=== PATIENT | female | born 1995 | race Caucasian/White ===

== ENCOUNTER 2018-11-15 11:23 | Emergency (ER) | payer OTHER ==
--- NOTE | 2018-11-15 12:26 | ER Document Report ---
ED Medical Screen (RME) - General Chief Complaint: Abdominal Pain Stated Complaint: ABDOMINAL PAIN/VOMITING/NAUSEA Time Seen by Provider: 11/15/18 12:18 Mode of Arrival: Ambulatory Information source: Patient Notes: 2-week history of left lower quadrant pain, nausea, vomiting. Patient describes the pain as a cramping sensation. No radiation. No alleviating or exacerbating factors. Patient denies any dysuria but does complain of some increased urgency. She denies any increased frequency. She denies any vaginal discharge, diarrhea, constipation. I have greeted and performed a rapid initial assessment of this patient. A comprehensive ED assessment and evaluation of the patient, analysis of test results and completion of the medical decision making process will be conducted by additional ED providers. PHYSICAL EXAMINATION: GENERAL: Well-appearing, well-nourished and in no acute distress. HEAD: Atraumatic, normocephalic. EYES: Pupils equal round extraocular movements intact, conjunctiva are normal. ENT: Nares patent NECK: Normal range of motion LUNGS: No respiratory distress Musculoskeletal: Normal range of motion NEUROLOGICAL: Normal speech, normal gait. PSYCH: Normal mood, normal affect. SKIN: Warm, Dry, normal turgor, no rashes or lesions noted. TRAVEL OUTSIDE OF THE [place] IN LAST 30 DAYS: No - Related Data Allergies/Adverse Reactions: No Known Allergies Allergy (Verified 11/15/18 12:16) Past Medical History - Social History Chew tobacco use (# tins/day): No Frequency of alcohol use: Occasional Renal/ Medical History: Denies: Hx Peritoneal Dialysis Psychiatric Medical History: Comment Only: Hx Depression - anxiety Past Surgical History: Reports: Hx Orthopedic Surgery - right arm, Hx Tonsillectomy Physical Exam - Vital signs Vitals: Temp Pulse Resp BP Pulse Ox 98.0 F 76 20 128/85 H 100 11/15/18 11:39 11/15/18 11:39 11/15/18 11:39 11/15/18 11:39 11/15/18 11:39 Course - Vital Signs Vital signs: Temp Pulse Resp BP Pulse Ox 98.0 F 76 20 128/85 H 100 11/15/18 11:39 11/15/18 11:39 11/15/18 11:39 11/15/18 11:39 11/15/18 11:39
[2018-11-15 12:59] LABS: ABSOLUTE EOSINOPHILS # (AUTO) 0.1 10^3/uL (0.0-0.6); ABSOLUTE LYMPHOCYTES (AUTO) 2.2 10^3/uL (0.5-4.7); ABSOLUTE MONOCYTES (AUTO) 0.7 10^3/uL (0.1-1.4); ABSOLUTE NEUT (AUTO) 3.3 10^3/uL (1.7-8.2); BASOPHILS % (AUTO) 0.8 % (0-2); EOSINOPHILS % (AUTO) 1.6 % (0-6); HEMATOCRIT 35.5 % (36.0-47.0); LYMPHOCYTES % (AUTO) 34.7 % (13-45); MEAN CORPUSCULAR HEMOGLOBIN 27.8 pg (27.0-33.4); MEAN CORPUSCULAR HGB CONC 33.7 g/dL (32.0-36.0); MEAN CORPUSCULAR VOLUME 82 fl (80-97); MONOCYTES % (AUTO) 10.6 % (3-13); PLATELET COUNT 269 10^3/uL (150-450); RED CELL DISTRIBUTION WIDTH 15.2 % (11.5-14.0); SEGMENTED NEUTROPHILS % (AUTO) 52.3 % (42-78); TOTAL CELLS COUNTED % (AUTO) 100 %; WHITE BLOOD COUNT 6.3 10^3/uL (4.0-10.5)
[2018-11-15 13:03] LABS: APPEARANCE,URINE SLIGHTLY-CLOUDY; BILIRUBIN,URINE NEGATIVE (NEGATIVE); COLOR,URINE YELLOW; GLUCOSE, URINE NEGATIVE (NEGATIVE); KETONES,URINE NEGATIVE (NEGATIVE); LEUKOCYTE ESTERASE,URINE NEGATIVE (NEGATIVE); NITRITE,URINE NEGATIVE (NEGATIVE); PROTEIN,URINE NEGATIVE (NEGATIVE); URINE SPECIFIC GRAVITY 1.023; UROBILINOGEN,URINE NEGATIVE mg/dL (<2.0)
[2018-11-15 13:24] LABS: ALANINE AMINOTRANSFERASE 14 U/L (9-52); ALBUMIN 4.6 g/dL (3.5-5.0); ALKALINE PHOSPHATASE 77 U/L (38-126); ANION GAP 12 (5-19); ASPARTATE AMINO TRANSFERASE 19 U/L (14-36); BILIRUBIN,DIRECT 0.2 mg/dL (0.0-0.4); BILIRUBIN,TOTAL 0.6 mg/dL (0.2-1.3); BLOOD UREA NITROGEN 10 mg/dL (7-20); CALCIUM 9.8 mg/dL (8.4-10.2); CARBON DIOXIDE 25 mmol/L (22-30); CHLORIDE 103 mmol/L (98-107); GLUCOSE 83 mg/dL (75-110); POTASSIUM 3.9 mmol/L (3.6-5.0); SODIUM 139.7 mmol/L (137-145); TOTAL PROTEIN 7.6 g/dL (6.3-8.2)
--- NOTE | 2018-11-15 18:00 | RADIOLOGY REPORT (SQ) ---
EXAM DESCRIPTION: CT ABD/PELVIS WITH IV ORAL COMPLETED DATE/TIME: 11/15/2018 5:49 pm REASON FOR STUDY: LLQ pain COMPARISON: None. TECHNIQUE: CT scan of the abdomen and pelvis performed using helical scanning technique with dynamic intravenous contrast injection and oral contrast. Images reviewed with lung, soft tissue, and bone w indows. Reconstructed coronal and sagittal MPR images reviewed. Delayed images for evaluation of the urinary system also acquired. All images stored on PACS. All CT scanners at this facility use dose modulation, iterative reconstruction, and/or weight based d osing when appropriate to reduce radiation dose to as low as reasonably achievable (ALARA). [facility]: Dose Right [facility]: CareDose [facility]: Dose Right [facility]: Teradose 4D [facility]: [employer] CONTRAST TYPE AND DOSE: contrast/concentration: Isovue 350.00 mg/ml; Total Contrast Delivered: 67.0 ml; Total Saline Delivered: 65.0 ml RENAL FUNCTION: GFR > 60. RADIATION DOSE: CT Rad equipment meets quality standard of care and radiation dose reduction techniq ues were employed. CTDIvol: 5.0 - 5.8 mGy. DLP: 528 mGy-cm.. LIMITATIONS: None. FINDINGS: LOWER CHEST: No significant findings. LIVER: Normal size. No enhancing masses. No dilated ducts. SPLEEN: Normal size. No focal lesions. PANCREAS: No masses identified. No significant calcifications. No adjacent inflammation or peripancre atic fluid collections. Pancreatic duct not dilated. GALLBLADDER: No calcified stones. No inflammatory changes to suggest cholecystitis. ADRENAL GLANDS: No significant masses. RIGHT KIDNEY AND URETER: No cysts identified. No solid masses identified. No calcified stones. No hyd ronephrosis or hydroureter. LEFT KIDNEY AND URETER: No cysts identified. No solid masses identified. No calcified stones. No hydr onephrosis or hydroureter. AORTA AND VESSELS: No aneurysm. No dissection. Renal arteries, SMA, celiac without significant stenos is. RETROPERITONEUM: No bulky retroperitoneal adenopathy. BOWEL AND PERITONEAL CAVITY: No obstruction or inflammatory changes. No free fluid. APPENDIX: Normal. PELVIS: No mass. No free fluid. Unremarkable bladder. ABDOMINAL WALL: No masses. No hernias. BONES: No acute findings. OTHER: No other significant finding. IMPRESSION: NO ACUTE FINDINGS IN THE ABDOMEN OR PELVIS ON CT SCAN WITH IV CONTRAST. TECHNICAL DOCUMENTATION: JOB ID: [id number] Quality ID # [id number]: Final reports with documentation of one or more dose reduction techniques (e.g., Au tomated exposure control, adjustment of the mA and/or kV according to patient size, use of iterative reconstruction technique) 2010 [employer]- All Rights Reserved Reading location - IP/workstation name: [email or web address]
--- NOTE | 2018-11-15 18:32 | ER Document Report ---
ED General - General Chief Complaint: Abdominal Pain Stated Complaint: ABDOMINAL PAIN/VOMITING/NAUSEA Time Seen by Provider: 11/15/18 12:18 Mode of Arrival: Ambulatory Notes: RME provider note: 2-week history of left lower quadrant pain, nausea, vomiting. Patient describes the pain as a cramping sensation. No radiation. No alleviating or exacerbating factors. Patient denies any dysuria but does complain of some increased urgency. She denies any increased frequency. She denies any vaginal discharge, diarrhea, constipation. MY HPI: Same as above, patient states in the last 2 weeks of her intermittent pain she has vomited probably 5 times denying any blood. Patient has not vomited in the last 72 hours. Past medical history: Factor V deficiency Medications: None Allergies: None Last menstrual period 10/21/2018 TRAVEL OUTSIDE OF THE [place] IN LAST 30 DAYS: No - Related Data Allergies/Adverse Reactions: No Known Allergies Allergy (Verified 11/15/18 12:16) Past Medical History - General Information source: Patient - Social History Smoking Status: Current Every Day Smoker Chew tobacco use (# tins/day): No Frequency of alcohol use: Occasional Family History: Reviewed & Not Pertinent Patient has suicidal ideation: No Patient has homicidal ideation: No Renal/ Medical History: Denies: Hx Peritoneal Dialysis Psychiatric Medical History: Comment Only: Hx Depression - anxiety Past Surgical History: Reports: Hx Orthopedic Surgery - right arm, Hx Tonsillectomy Review of Systems - Review of Systems Constitutional: denies: Chills, Fever EENT: No symptoms reported Cardiovascular: No symptoms reported Respiratory: No symptoms reported Gastrointestinal: See HPI Genitourinary: See HPI Female Genitourinary: See HPI Musculoskeletal: No symptoms reported Skin: No symptoms reported Hematologic/Lymphatic: No symptoms reported Neurological/Psychological: No symptoms reported Physical Exam - Vital signs Vitals: Temp Pulse Resp BP Pulse Ox 98.0 F 76 20 128/85 H 100 11/15/18 11:39 11/15/18 11:39 11/15/18 11:39 11/15/18 11:39 11/15/18 11:39 - Notes Notes: GENERAL: Alert, interacts well. No acute distress. HEAD: Normocephalic, atraumatic. EYES: Pupils equal, round, and reactive to light. Extraocular movements intact. ENT: Oral mucosa moist, tongue midline. NECK: Full range of motion. Supple. Trachea midline. LUNGS: Clear to auscultation bilaterally, no wheezes, rales, or rhonchi. No respiratory distress. HEART: Regular rate and rhythm. No murmur ABDOMEN: Soft, Non-distended. Bowel sounds present in all 4 quadrants. No McBurney's point tenderness noted, no Brown sign. Patient has generalized left lower quadrant abdominal pain. Pain does not radiate into her left pelvic region. Denies periumbilical abdominal pain or suprapubic abdominal pain EXTREMITIES: Moves all 4 extremities spontaneously. No edema, normal radial and dorsalis pedis pulses bilaterally. No cyanosis. BACK: no cervical, thoracic, lumbar midline tenderness. No saddle anesthesia, normal distal neurovascular exam. No CVA tenderness noted NEUROLOGICAL: Alert and oriented x3. Normal speech. cranial nerves II through XII grossly intact PSYCH: Normal affect, normal mood. SKIN: Warm, dry, normal turgor. No rashes or lesions noted. Course - Re-evaluation Re-evalutation: 11/15/18 18:33 Initially discussed with patient and mother at bedside at length patient's lab results. No signs of leukocytosis, no signs of anemia, CMP within normal limits, no signs of urinary tract infection, hCG negative. Discussed due to the location of her left lower abdominal quadrant pain potentially diverticulitis is unable to be ruled out. Discussed use of at home antibiotics and follow-up with primary care provider. Also discussed use of CT imaging at this time. Discussed pros and cons of CT imaging and radiation exposure. Mother and patient wished to continue with CT imaging to "figure out exactly what is going on." Again discussed the risks versus benefits of CT imaging and radiation exposure. Mother and patient continue to wish for testing. CT with oral and IV contrast showed no signs of abnormalities. Patient continues without vomiting in the emergency room and states she overall feels a lot better. Discussed close follow-up with primary care provider, vitals stable, stable for discharge. - Vital Signs Vital signs: Temp Pulse Resp BP Pulse Ox 97.5 F 64 16 137/79 H 100 11/15/18 15:12 11/15/18 15:12 11/15/18 15:12 11/15/18 15:12 11/15/18 15:12 - Laboratory Result Diagrams: 11/15/18 12:40 11/15/18 12:40 Laboratory results interpreted by me: 11/15/18 12:40 Hct 35.5 L RDW 15.2 H Discharge - Discharge Clinical Impression: Abdominal pain Qualifiers: Abdominal location: left lower quadrant Qualified Code(s): R10.32 - Left lower quadrant pain Condition: Stable Disposition: HOME, SELF-CARE Instructions: Abdominal Pain ([facility]) Additional Instructions: As we discussed you have been seen and treated in the emergency department for your generalized lower left abdominal pain. At this time your imaging reveals no signs of abnormalities and your labs are within normal limits. Please make sure you follow-up with your primary care provider in the next 24-48 hours. Please return to the emergency room for any other concerning symptoms. Forms: Return to Work Referrals: ANDI HA DO [NO LOCAL MD] - Follow up as needed
[2018-11-15 19:13] VITALS: BP 129/93
== END 2018-11-15 19:14 | disposition home or self-care (01) ==
LOC: ER 11:23
DX: R10.32 Left lower quadrant pain (principal); R11.2 Nausea with vomiting, unspecified; F17.200 Nicotine dependence, unspecified, uncomplicated
CPT/HCPCS: 36415; 74177; 80053; 81001; 81025; 85025; 99284

== ENCOUNTER 2019-04-19 18:02 | Observation (INO) | payer OTHER ==
--- NOTE | 2019-04-19 18:29 | ER Document Report ---
ED Medical Screen (RME) - General Chief Complaint: Vag Bleeding, +preg <12wks Stated Complaint: ISSUE Time Seen by Provider: 04/19/19 18:22 Notes: Patient is a 23-year-old female G1, P0 presents to the emergency department for vaginal bleeding. Patient states she is approximately 18 weeks . States yesterday she started with some generalized abdominal cramping. States prior to arrival to the emergency room she started with vaginal bleeding. States it is dark red in color and intermittently with clots. Patient states she now feels lightheaded and weak. Past medical history: Factor V Leiden Medications: Aspirin Allergies: None GENERAL: Alert, interacts well. No acute distress. ABDOMEN: Soft, generalized bilateral pelvic pain noted non-distended. I have greeted and performed a rapid initial assessment of this patient. A comprehensive ED assessment and evaluation of the patient, analysis of test results and completion of the medical decision making process will be conducted by additional ED providers. I have specifically instructed the patient or family members with the patient to immediately return to any nursing staff should anything change in the patient's condition or with their chief complaint. This medical record was dictated with voice recognizing software. There may be grammatical, syntax errors that are unintended. TRAVEL OUTSIDE OF THE [place] IN LAST 30 DAYS: No - Related Data Allergies/Adverse Reactions: No Known Allergies Allergy (Verified 11/15/18 12:16) Past Medical History Renal/ Medical History: Denies: Hx Peritoneal Dialysis Psychiatric Medical History: Comment Only: Hx Depression - anxiety Past Surgical History: Reports: Hx Orthopedic Surgery - right arm, Hx Tonsillectomy Physical Exam - Vital signs Vitals: Temp Pulse Resp BP Pulse Ox 98.3 F 89 16 127/77 H 100 04/19/19 18:06 04/19/19 18:06 04/19/19 18:06 04/19/19 18:06 04/19/19 18:06 Course - Vital Signs Vital signs: Temp Pulse Resp BP Pulse Ox 98.3 F 89 16 127/77 H 100 04/19/19 18:06 04/19/19 18:06 04/19/19 18:06 04/19/19 18:06 04/19/19 18:06
[2019-04-19 18:51] LABS: ABSOLUTE EOSINOPHILS # (AUTO) 0.1 10^3/uL (0.0-0.6); ABSOLUTE LYMPHOCYTES (AUTO) 1.7 10^3/uL (0.5-4.7); ABSOLUTE MONOCYTES (AUTO) 0.8 10^3/uL (0.1-1.4); ABSOLUTE NEUT (AUTO) 7.9 10^3/uL (1.7-8.2); BASOPHILS % (AUTO) 0.2 % (0-2); EOSINOPHILS % (AUTO) 0.6 % (0-6); HEMATOCRIT 34.1 % (36.0-47.0); HEMOGLOBIN 11.5 g/dL (12.0-15.5); LYMPHOCYTES % (AUTO) 16.2 % (13-45); MEAN CORPUSCULAR HEMOGLOBIN 28.9 pg (27.0-33.4); MEAN CORPUSCULAR HGB CONC 33.7 g/dL (32.0-36.0); MEAN CORPUSCULAR VOLUME 86 fl (80-97); MONOCYTES % (AUTO) 7.2 % (3-13); PLATELET COUNT 212 10^3/uL (150-450); RED BLOOD COUNT 3.97 10^6/uL (3.72-5.28); RED CELL DISTRIBUTION WIDTH 16.3 % (11.5-14.0); SEGMENTED NEUTROPHILS % (AUTO) 75.8 % (42-78); TOTAL CELLS COUNTED % (AUTO) 100 %; WHITE BLOOD COUNT 10.5 10^3/uL (4.0-10.5)
--- NOTE | 2019-04-19 18:53 | ER Document Report ---
ED GI/ - General Chief Complaint: Vag Bleeding, +preg <12wks Stated Complaint: ISSUE Time Seen by Provider: 04/19/19 18:22 Mode of Arrival: Ambulatory Information source: Patient Notes: 23-year-old female presented to ED for complaint of vaginal bleeding at 18 weeks . She states she is 1 para 0. She states she started yesterday with some generalized cramping and then today she had some vaginal bleeding dark red intermittent clots. She states she feeling a little lightheaded now. Blood work and ultrasound are in progress. TRAVEL OUTSIDE OF THE [place] IN LAST 30 DAYS: No - HPI Patient complains to provider of: Abdominal pain Onset: Yesterday Timing/Duration: Gradual, Intermittent Quality of pain: Cramping Severity at maximum: Severe Severity in ED: Severe Pain Level: 5 Vaginal bleeding (Compared to normal period): Dark brown, Passing clots Menstrual period history: Associated symptoms: Other - Pelvic pain lightheadedness normal vaginal bleeding Exacerbated by: Denies Relieved by: Denies Similar symptoms previously: No Recently seen / treated by doctor: Yes - Related Data Allergies/Adverse Reactions: No Known Allergies Allergy (Verified 11/15/18 12:16) Past Medical History - General Information source: Patient - Social History Smoking Status: Never Smoker Frequency of alcohol use: None Drug Abuse: None Lives with: Family Family History: Reviewed & Not Pertinent Patient has suicidal ideation: No Patient has homicidal ideation: No - Past Medical History Cardiac Medical History: Reports: Hx Hypertension, Other - factor V leiden Pulmonary Medical History: Reports: None EENT Medical History: Reports: None Neurological Medical History: Reports: None Endocrine Medical History: Reports: None Renal/ Medical History: Reports: None Malignancy Medical History: Reports: None GI Medical History: Reports: None Musculoskeletal Medical History: Reports None Skin Medical History: Reports None Psychiatric Medical History: Reports: Hx Anxiety, Hx Depression - anxiety Traumatic Medical History: Reports: None Infectious Medical History: Reports: None Past Surgical History: Reports: Hx Orthopedic Surgery - right arm, Hx Tonsillectomy Review of Systems - Review of Systems Constitutional: No symptoms reported EENT: No symptoms reported Cardiovascular: Lightheaded Respiratory: No symptoms reported Gastrointestinal: No symptoms reported Genitourinary: No symptoms reported Female Genitourinary: No symptoms reported, , Vaginal bleeding - Vaginal pain, Other Musculoskeletal: No symptoms reported Skin: No symptoms reported Hematologic/Lymphatic: No symptoms reported Neurological/Psychological: No symptoms reported -: Yes All other systems reviewed and negative Physical Exam - Vital signs Vitals: Temp Pulse Resp BP Pulse Ox 98.3 F 89 16 127/77 H 100 04/19/19 18:06 04/19/19 18:06 04/19/19 18:06 04/19/19 18:06 04/19/19 18:06 Interpretation: Normal - General General appearance: Appears well, Alert - HEENT Head: Normocephalic, Atraumatic Eyes: Normal Pupils: PERRL - Respiratory Respiratory status: No respiratory distress Chest status: Nontender Breath sounds: Normal Chest palpation: Normal - Cardiovascular Rhythm: Regular Heart sounds: Normal auscultation Murmur: No - Abdominal Inspection: Normal Distension: No distension Bowel sounds: Normal Tenderness: Nontender Organomegaly: No organomegaly - Genitourinary Vaginal bleeding: Mild Notes: No speculum exam done patient is an active labor water has broken. Digital exam able to feel baby's head - Back Back: Normal, Nontender - Extremities General upper extremity: Normal inspection, Nontender, Normal color, Normal ROM, Normal temperature General lower extremity: Normal inspection, Nontender, Normal color, Normal ROM, Normal temperature, Normal weight bearing. No: Briseida's sign - Neurological Neuro grossly intact: Yes Cognition: Normal Orientation: AAOx4 Gris Coma Scale Eye Opening: Spontaneous Gris Coma Scale Verbal: Oriented Gris Coma Scale Motor: Obeys Commands Gris Coma Scale Total: 15 Speech: Normal Motor strength normal: LUE, RUE, LLE, RLE Sensory: Normal - Psychological Associated symptoms: Normal affect, Normal mood - Skin Skin Temperature: Warm Skin Moisture: Dry Skin Color: Normal Course - Re-evaluation Re-evalutation: 04/19/19 20:[address] Cline. First time he told me to call him back if he was needed as my conversation was interrupted with nurse saying patient had expelled something. I examined the patient she had broken her membranes but she had not passed a baby there was minimal bleeding at that time. I consulted him that him know that the child had not been born. The second time I consult to him, I told him that she had ruptured her membranes but had not passed the fetus; he stated that she should be sent up to the labor and delivery right away. She has not delivered the baby when she left the ER. Digital exam I was able to feel something in the vaginal vault but it was not a complete baby. 04/20/19 02:27 - Vital Signs Vital signs: Temp Pulse Resp BP Pulse Ox 98.1 F 70 20 114/67 100 04/19/19 23:13 04/19/19 23:13 04/19/19 23:13 04/19/19 23:13 04/19/19 23:13 - Laboratory Result Diagrams: 04/19/19 18:35 04/19/19 18:35 Laboratory results interpreted by me: 04/19/19 04/19/19 04/19/19 18:35 18:35 18:35 Hgb 11.5 L Hct 34.1 L RDW 16.3 H Sodium 136.7 L Beta HCG, Quant 22353.00 H Urine Blood MODERATE H Ur Leukocyte Esterase MODERATE H Urine Ascorbic Acid 20 H - Diagnostic Test Radiology reviewed: Image reviewed, Reports reviewed - Consults cline Time consulted: 19:50 Reason for consultation: 04/20/19 02:31 Eminent delivery of 18 to 20-week gestation Consulted provider: other Discharge - Discharge Clinical Impression: misscarraige in proress 18 weeks Disposition: ADMITTED OBSERVATION Admitting Provider: [facility] - web Unit Admitted: Labor and Delivery
[2019-04-19 19:02] LABS: APPEARANCE,URINE SLIGHTLY-CLOUDY; BILIRUBIN,URINE NEGATIVE (NEGATIVE); COLOR,URINE YELLOW; GLUCOSE, URINE NEGATIVE (NEGATIVE); KETONES,URINE NEGATIVE (NEGATIVE); LEUKOCYTE ESTERASE,URINE MODERATE (NEGATIVE); NITRITE,URINE NEGATIVE (NEGATIVE); PROTEIN,URINE NEGATIVE (NEGATIVE); URINE SPECIFIC GRAVITY 1.024; UROBILINOGEN,URINE NEGATIVE mg/dL (<2.0)
[2019-04-19 19:07] LABS: ALANINE AMINOTRANSFERASE 26 U/L (9-52); ALKALINE PHOSPHATASE 63 U/L (38-126); ANION GAP 9 (5-19); ASPARTATE AMINO TRANSFERASE 26 U/L (14-36); BILIRUBIN,DIRECT 0.2 mg/dL (0.0-0.4); BILIRUBIN,TOTAL 0.3 mg/dL (0.2-1.3); BLOOD UREA NITROGEN 7 mg/dL (7-20); CALCIUM 9.5 mg/dL (8.4-10.2); CARBON DIOXIDE 25 mmol/L (22-30); CHLORIDE 103 mmol/L (98-107); GLUCOSE 89 mg/dL (75-110); POTASSIUM 4.1 mmol/L (3.6-5.0); SODIUM 136.7 mmol/L (137-145); TOTAL PROTEIN 7.1 g/dL (6.3-8.2)
[2019-04-19] MEDS ORDERED: ACETAMINOPHEN 325 MG TABLET PO ONE (19:36)
[2019-04-19] MEDS ORDERED: NORMAL SALINE 1000 ML 1,000 ML IV ONE (19:47)
--- NOTE | 2019-04-19 20:33 | RADIOLOGY REPORT (SQ) ---
EXAM DESCRIPTION: U/S OB LIMITED COMPLETED DATE/TIME: 04/19/2019 7:11 pm REASON FOR STUDY: 18 weeks with vaginal bleeding . COMPARISON: None. TECHNIQUE: Limited transabdominal grayscale ultrasound for evaluation of specific requested obstetri edgardo parameters. LIMITATIONS: None. FINDINGS: EGA: 20 weeks 0 days MAD[place]: 09/06/2019. CERVICAL LENGTH: There is U shape funneling of the cervix. The closed segment of the cervix is jamie uring 2.3 cm. SAFIA: LVP 2.6 cm. FHR: 153 beats per minute. PRESENTATION: Breech. The legs of the fetus are protruding into the open segment of the cervix. PLACENTA: Low-lying placenta extending to the internal cervical os. ANATOMY: Not assessed IMPRESSION: LIMITED OBSTETRICAL ULTRASOUND WITH MEASURED PARAMETERS DELINEATED ABOVE. LOW LYING AIYANA CENTA EXTENDING TO THE INTERNAL CERVICAL OS. U SHAPED FUNNELING OF THE CERVIX. BREECH PRESENTATION OF THE FETUS WITH THE LEGS OF THE FETUS PROTRUDING INTO THE OPEN SEGMENT OF THE CERVIX. OB-DRY HOUSE TENDER CONSU LT RECOMMENDED. Trimester of : Second trimester - 13 weeks 1 day to 27 weeks 6 days. COMMUNICATION The critical information above was relayed directly by me by telephone to Dr. Luis pringle 04/19/2019 at 20:22 hrs with readback verification. TECHNICAL DOCUMENTATION: JOB ID: [id number] 2010 [employer]- All Rights Reserved Reading location - IP/workstation name: [email or web address]
[2019-04-19] MEDS ORDERED: ONDANSETRON 4 MG TAB.RAPDIS PO PRN (21:11)
[2019-04-19] MEDS ORDERED: ONDANSETRON HCL INJ/PF 4 MG/2 ML SDV IV PRN (21:12)
[2019-04-19] MEDS ORDERED: ACETAMINOPHEN WITH CODEINE #3 TABLET PO PRN (21:12)
[2019-04-19] MEDS ORDERED: RINGERS SOLUTION,LACTATED 1,000 ML IV PRN (21:12)
[2019-04-19] MEDS: ACETAMINOPHEN WITH CODEINE #3 TABLET PO PRN (21:38)
[2019-04-19] MEDS: IBUPROFEN 800 MG TABLET PO SCH (22:56)
--- NOTE | 2019-04-20 00:27 | PDOC H&P ---
History of Present Illness Admission Date/PCP: 04/19/19 21:03 Patient complains of: vaginal bleeding and cramping History of Present Illness: MONSERRAT BROWNLEE is a 23 year old female G1 at 18 weeks by history presented to er with cramping and vaginal bleeding. reported as SROM with parts in the lower cervical canal/ Past Medical History LMP: [place] 09/20/19 Cardiac Medical History: Reports: Hypertension, Other - factor V leiden Pulmonary Medical History: Reports: None EENT Medical History: Reports: None Neurological Medical History: Reports: None Endocrine Medical History: Reports: None Renal/ Medical History: Reports: None Malignancy Medical History: Reports: None GI Medical History: Reports: None Musculoskeltal Medical History: Reports: None Skin Medical History: Reports: None Psychiatric Medical History: Reports: Depression Traumatic Medical History: Reports: None Infectious Medical History: Reports: None Past Surgical History Past Surgical History: Reports: Orthopedic Surgery - right arm, Tonsillectomy Social History Lives with: Family Smoking Status: Never Smoker Frequency of Alcohol Use: None Hx Recreational Drug Use: No Drugs: None Hx Prescription Drug Abuse: No Family History Family History: Reviewed & Not Pertinent Parental Family History Reviewed: No Children Family History Reviewed: No Sibling(s) Family History Reviewed.: No Medication/Allergy Home Medications: No Home Medications 11/15/18 Allergies/Adverse Reactions: No Known Allergies Allergy (Verified 11/15/18 12:16) Physical Exam - Physical Exam Vital Signs: Temp Pulse Resp BP Pulse Ox 98.1 F 70 20 114/67 100 04/19/19 23:13 04/19/19 23:13 04/19/19 23:13 04/19/19 23:13 04/19/19 23:13 Intake & Output 04/18/19 04/19/19 04/20/19 06:59 06:59 06:59 Intake Total 200 Balance 200 Weight 61.9 kg General appearance: PRESENT: severe distress Head exam: PRESENT: atraumatic Neurological exam: PRESENT: alert - Obstetrical Exam Vagina: normal Result Laboratory Results: 04/19/19 18:35 04/19/19 18:35 04/19/19 04/19/19 04/19/19 18:35 18:35 18:35 WBC 10.5 RBC 3.97 Hgb 11.5 L Hct 34.1 L MCV 86 MCH 28.9 MCHC 33.7 RDW 16.3 H Plt Count 212 Seg Neutrophils % 75.8 Lymphocytes % 16.2 Monocytes % 7.2 Eosinophils % 0.6 Basophils % 0.2 Absolute Neutrophils 7.9 Absolute Lymphocytes 1.7 Absolute Monocytes 0.8 Absolute Eosinophils 0.1 Absolute Basophils 0.0 Sodium 136.7 L Potassium 4.1 Chloride 103 Carbon Dioxide 25 Anion Gap 9 BUN 7 Creatinine 0.68 Est GFR ( Amer) > 60 Est GFR (Non-Af Amer) > 60 Glucose 89 Calcium 9.5 Total Bilirubin 0.3 AST 26 ALT 26 Alkaline Phosphatase 63 Total Protein 7.1 Albumin 4.0 Urine Color Urine Appearance Urine pH Ur Specific [place] Urine Protein Urine Glucose (UA) Urine Ketones Urine Blood Urine Nitrite Ur Leukocyte Esterase Urine WBC (Auto) Urine RBC (Auto) Blood Type O POSITIVE 04/19/19 18:35 WBC RBC Hgb Hct MCV MCH MCHC RDW Plt Count Seg Neutrophils % Lymphocytes % Monocytes % Eosinophils % Basophils % Absolute Neutrophils Absolute Lymphocytes Absolute Monocytes Absolute Eosinophils Absolute Basophils Sodium Potassium Chloride Carbon Dioxide Anion Gap BUN Creatinine Est GFR ( Amer) Est GFR (Non-Af Amer) Glucose Calcium Total Bilirubin AST ALT Alkaline Phosphatase Total Protein Albumin Urine Color YELLOW Urine Appearance SLIGHTLY-CLOUDY Urine pH 7.0 Ur Specific [place] 1.024 Urine Protein NEGATIVE Urine Glucose (UA) NEGATIVE Urine Ketones NEGATIVE Urine Blood MODERATE H Urine Nitrite NEGATIVE Ur Leukocyte Esterase MODERATE H Urine WBC (Auto) 9 Urine RBC (Auto) 3 Blood Type Impressions: Obstetrics Ultrasound 04/19/19 18:24 IMPRESSION: LIMITED OBSTETRICAL ULTRASOUND WITH MEASURED PARAMETERS DELINEATED ABOVE. LOW LYING PLACENTA EXTENDING TO THE INTERNAL CERVICAL OS. U SHAPED FUNNELING OF THE CERVIX. BREECH PRESENTATION OF THE FETUS WITH THE LEGS OF THE FETUS PROTRUDING INTO THE OPEN SEGMENT OF THE CERVIX. OB-DOCUMENT DESIGN SPECIALIST CONSULT RECOMMENDED. Trimester of : Second trimester - 13 weeks 1 day to 27 weeks 6 days. Assessment & Plan - Diagnosis (1) PROM (premature rupture of membranes) Qualifiers: PROM onset of labor timing: unspecified duration between rupture of membranes and onset of labor PROM gestational age: -first trimester Qualified Code(s): O42.911 - premature rupture of membranes, unspecified as to length of time between rupture and onset of labor, first trimester Is this a current diagnosis for this admission?: Yes - Plan Summary Plan Summary: expectant management
[2019-04-20] MEDS: ACETAMINOPHEN WITH CODEINE #3 TABLET PO PRN ×2 (02:34→06:33)
[2019-04-20] MEDS ORDERED: MISOPROSTOL 0.2 MG TABLET ONE (02:53)
[2019-04-20] MEDS ORDERED: MISOPROSTOL 0.2 MG TABLET PR ONE (03:10)
[2019-04-20] MEDS: IBUPROFEN 800 MG TABLET PO SCH ×2 (06:32→15:17)
--- NOTE | 2019-04-20 11:44 | PDOC DISCHARGE SUMMARY ---
General - Admit/Disc Date/PCP Admission Date/Primary Care Provider: 04/19/19 21:03 Discharge Date: 04/20/19 - Discharge Diagnosis (1) Spontaneous Is this a current diagnosis for this admission?: Yes (2) PROM (premature rupture of membranes) Is this a current diagnosis for this admission?: Yes - Additional Information Home Medications: No Home Medications 11/15/18 History of Present Illness History of Present Illness: MONSERRAT BROWNLEE is a 23 year old female Hospital Course Hospital Course: pt presented with pprom at approximately 18 wks. preceded to deliver the POC with fetus. has thus far had unremarkable post delivery course. is ready for discharge home Physical Exam - Physical Exam Vital Signs: Temp Pulse Resp BP Pulse Ox 97.8 F 75 16 114/61 99 04/20/19 08:31 04/20/19 08:31 04/20/19 08:31 04/20/19 08:31 04/20/19 08:31 Intake & Output 04/19/19 04/20/19 04/21/19 06:59 06:59 06:59 Intake Total 200 Balance 200 Weight 63.3 kg General appearance: PRESENT: no acute distress, cooperative - abdomen soft, nontender and nondistended. uterus well below umbilicus - Obstetrical Exam Vagina: normal Result Laboratory Results: 04/19/19 18:35 04/19/19 18:35 04/19/19 04/19/19 04/19/19 18:35 18:35 18:35 WBC 10.5 RBC 3.97 Hgb 11.5 L Hct 34.1 L MCV 86 MCH 28.9 MCHC 33.7 RDW 16.3 H Plt Count 212 Seg Neutrophils % 75.8 Lymphocytes % 16.2 Monocytes % 7.2 Eosinophils % 0.6 Basophils % 0.2 Absolute Neutrophils 7.9 Absolute Lymphocytes 1.7 Absolute Monocytes 0.8 Absolute Eosinophils 0.1 Absolute Basophils 0.0 Sodium 136.7 L Potassium 4.1 Chloride 103 Carbon Dioxide 25 Anion Gap 9 BUN 7 Creatinine 0.68 Est GFR ( Amer) > 60 Est GFR (Non-Af Amer) > 60 Glucose 89 Calcium 9.5 Total Bilirubin 0.3 AST 26 ALT 26 Alkaline Phosphatase 63 Total Protein 7.1 Albumin 4.0 Urine Color Urine Appearance Urine pH Ur Specific [place] Urine Protein Urine Glucose (UA) Urine Ketones Urine Blood Urine Nitrite Ur Leukocyte Esterase Urine WBC (Auto) Urine RBC (Auto) Blood Type O POSITIVE 04/19/19 18:35 WBC RBC Hgb Hct MCV MCH MCHC RDW Plt Count Seg Neutrophils % Lymphocytes % Monocytes % Eosinophils % Basophils % Absolute Neutrophils Absolute Lymphocytes Absolute Monocytes Absolute Eosinophils Absolute Basophils Sodium Potassium Chloride Carbon Dioxide Anion Gap BUN Creatinine Est GFR ( Amer) Est GFR (Non-Af Amer) Glucose Calcium Total Bilirubin AST ALT Alkaline Phosphatase Total Protein Albumin Urine Color YELLOW Urine Appearance SLIGHTLY-CLOUDY Urine pH 7.0 Ur Specific [place] 1.024 Urine Protein NEGATIVE Urine Glucose (UA) NEGATIVE Urine Ketones NEGATIVE Urine Blood MODERATE H Urine Nitrite NEGATIVE Ur Leukocyte Esterase MODERATE H Urine WBC (Auto) 9 Urine RBC (Auto) 3 Blood Type Impressions: Obstetrics Ultrasound 04/19/19 18:24 IMPRESSION: LIMITED OBSTETRICAL ULTRASOUND WITH MEASURED PARAMETERS DELINEATED ABOVE. LOW LYING PLACENTA EXTENDING TO THE INTERNAL CERVICAL OS. U SHAPED FUNNELING OF THE CERVIX. BREECH PRESENTATION OF THE FETUS WITH THE LEGS OF THE FETUS PROTRUDING INTO THE OPEN SEGMENT OF THE CERVIX. OB-KILN CAR REPAIRER CONSULT RECOMMENDED. Trimester of : Second trimester - 13 weeks 1 day to 27 weeks 6 days. Plan Discharge Plan: follow up in 4 wks for a post delivery/SAB check at [facility]. Continue with PNV Time Spent: Less than 30 Minutes Acute Heart Failure - Is this a Heart Failure Patient?: No
[2019-04-20 17:39] VITALS: BP 111/67
== END 2019-04-20 18:20 | disposition home or self-care (01) ==
LOC: ER 18:02 → 2N 21:03 → INTOOBSV 21:03 → 2N 04-20 07:58
PROVIDERS: ADMIT Obstetrics & Gynecology Gynecology; ATTEND Obstetrics & Gynecology Gynecology
DX: O03.39 Incomplete spontaneous abortion with other complications (principal); O41.1220 Chorioamnionitis, second trimester, not applicable or unspecified; O42.912 Preterm premature rupture of membranes, unspecified as to length of time between rupture and onset of labor, second trimester; O32.1XX0 Maternal care for breech presentation, not applicable or unspecified; O03.6 Delayed or excessive hemorrhage following complete or unspecified spontaneous abortion; D68.51 Activated protein C resistance; Z3A.18 18 weeks gestation of pregnancy; Z37.1 Single stillbirth
CPT/HCPCS: 99285; 86900; 86901; 36415; 84702; 85025; 80053; 81001; 88305 ×2; 76815; G0378 ×3; J2405; 88307